=== PATIENT | female | born 1950 | race Asian ===

== ENCOUNTER 2024-10-21 14:41 | Emergency (ER) | payer MEDICARE, SELFPAY ==
--- NOTE | ~2024-10-21 | CT_ITS ---
EXAMINATION: CT HEAD WITHOUT CONTRAST CLINICAL INFORMATION: Headache status-post fall. COMPARISON: None available. TECHNIQUE: Contiguous axial imaging was performed from the skull base to vertex without intravenous administration of contrast. Multiplanar reformatted images are submitted. This CT examination was performed using dose optimization techniques as appropriate, variously including the following: *Automated exposure control *Adjustment of mA and/or kV according to patient size (this includes techniques or standardized protocols for targeted exams where dose is matched to indication/reason for exam; i.e. extremities or head) *Use of iterative reconstruction technique DLP: 1064 mGy-cm (head and cervical spine) FINDINGS: There is no acute intracranial hemorrhage or evidence of territorial infarction. No abnormal mass effect or midline shift is seen. Fajardo to white matter differentiation is well preserved. There is mild patchy low attenuation change in the periventricular and subcortical white matter spaces. The ventricles are normal in size. No extra-axial fluid collections are identified. The calvarium is intact, without fracture. There is a large posterior scalp hematoma. The middle ear cavity and mastoid air cells are clear. There is mild bilateral ethmoid and maxillary sinusitis. The frontal sinuses are aplastic. CT/CT cervical spine wo IV con IMPRESSION: 1. No acute intracranial pathology. 2. There is mild patchy low attenuation change in the periventricular and subcortical white matter spaces, commonly associated with chronic microangiopathy. 3. A moderately large posterior scalp hematoma is seen, without underlying fracture noted. 4. There is mild paranasal sinusitis. EXAMINATION: CT CERVICAL SPINE WITHOUT CONTRAST CLINICAL INFORMATION: Neck pain status-post fall. COMPARISON: None available. TECHNIQUE: Contiguous axial imaging was performed through the cervical spine without intravenous administration of contrast. Multiplanar reformatted images are submitted. This CT examination was performed using dose optimization techniques as appropriate, variously including the following: *Automated exposure control *Adjustment of mA and/or kV according to patient size (this includes techniques or standardized protocols for targeted exams where dose is matched to indication/reason for exam; i.e. extremities or head) *Use of iterative reconstruction technique DLP: As above FINDINGS: Vertebral body heights and alignment are normal. There is mild disc space narrowing at C5-6. The remaining disc spaces are well-maintained. No acute fracture or spondylolisthesis is seen. There is endplate arthropathy at C4-5 through C6-7. The posterior elements are intact. There is no prevertebral soft tissue swelling. The dens is intact. The bilateral lung apices are clear. IMPRESSION: 1. No acute fracture or spondylolisthesis is seen. 2. There is mild degenerative disc disease at C5-6. Fleischner guidelines were followed. Electronically signed by: Tito Baldwin MD 10/21/2024 04:01 PM FARZANA
[2024-10-21 14:51] VITALS: BP 156/87; BP 197/80; PULSE 70; PULSE 72; RESP 16; TEMP 37; O2SAT 96; BMI 27.4
--- NOTE | 2024-10-21 14:57 | ED_ITS ---
HPI - Head Injury General Chief complaint: Fall Stated complaint: SLIP/FALL ON ICE,UNK DOWNTIME,DIZZY,HEAD/NECK PAIN Time Seen by Provider: 10/21/24 14:55 Source: patient and EMS Limitations: language barrier (Primary language; Uruguayan - requesting to son as pipe stress engineer rather than translation service) History of Present Illness ED Provider: Rayne Terry NP HPI Narrative: Patient is a 74-year-old female with past medical history of hypertension who presents emergency department via EMS for evaluation. Patient was found at the end of her driveway in an icy area. Family that lives across the street was on scene for EMS facilitating translation. Patient endorsing posterior head and neck pain and dizziness. Son arrives to the emergency department at the time of my evaluation. Patient requesting to use sun as pipe stress engineer declining translation services. Patient's son reports that patient often reports feeling lightheaded. She was feeling otherwise well today. Reports that she was attempting to shovel the driveway today, she went to go to the mailbox and states that she felt lightheaded and ultimately fell. When asked the patient declines slipping on ice. Reports that she did not lose consciousness, states that she was able to call her family that lives across the street right currently she is complaining of pain to the back of her head. She denies any dizziness, lightheadedness, vision changes, neck pain, neck stiffness, numbness or tingling of the extremities, bladder bowel dysfunction Related Data Allergies Allergy/AdvReac Type Severity Reaction Status Date / Time No Known Allergies Allergy Verified 10/21/24 14:54 Review of Systems 2 Review of Systems: Yes all other systems are reviewed and are negative [facility] Past Medical History Attestation statement: The following information was validated with the patient. Source: old records reviewed Social History Social History Smoked in Last 30 Days: No Use of substances other than those prescribed or required for medical reasons: No Advance Directives: No Advance Directives Information Provided: Yes Do you have a plan to hurt others: No Plan Physical Exam 2 Vital Signs: Vital Signs: Last Vital Signs Temp 98.6 F 10/21/24 15:07 Pulse 86 10/21/24 17:53 Resp 16 10/21/24 17:49 BP 144/87 H 10/21/24 17:53 Pulse Ox 96 10/21/24 17:49 O2 Del Method Room Air 10/21/24 17:49 BMI result Body Mass Index 27.4 Appearance: Alert.?Oriented to person, place and time. No acute distress.?Normal affect. Head: Normocephalic Eyes: Pupils equal, round and reactive to light. EOMI. Conjunctiva and sclera normal? No Rosenthal sign noted. No raccoon eyes noted ENT: No septal hematoma, nares patent bilaterally. External auditory canal normal tympanic membrane pearly patterson and intact bilaterally. Dentition normal, no fractured teeth. No lesions or lacerations of oropharynx. Uvula midline. Moist mucous membranes. Neck: Normal inspection.? Neck supple.??No palpable tenderness, step-off, deformities. CVS: Heart sounds normal. Normal heart rate and rhythm.? Pulses normal.?? Respiratory: No respiratory distress.? Lung sounds clear to auscultation bilaterally?? Abdomen: Soft and non-tender. Normoactive bowel sounds. ?? Skin: Skin warm and dry.? Normal skin color.? Normal skin turgor.?? Extremities: No lower extremity edema.? Neuro: Moves all extremities spontaneously. Sensation intact bilaterally. CN II- XII intact. No focal neuro deficits. Course Reevaluation(s) Reevaluation #1: CT of the cervical spine with mild DJD no acute fracture subluxation. CT of the head/brain without acute intracranial pathology, chronic microangiopathy, posterior scalp hematoma without underlying fracture. Patient has noticed in COVID-19 positive today, which may be perhaps prior she was feeling more weak and lightheaded especially while outdoors today. Her high sensitive troponin is below detectable limits, EKG revealing normal sinus rhythm with ventricular rate of 66, normal CHRISTINA, QTC 467, T-wave inversion V1-V3, no ST elevation or depression given the lightheadedness associated with exertional activity will obtain delta troponin to exclude ACS. Orthostatic vital signs are negative. CBC is without leukocytosis anemia or thrombocytopenia. No electrolyte derangement. No PARTHA. Urinalysis with without evidence of infection. Ambulatory with a steady gait. Reevaluation #2: Delta troponin is negative, discussed findings with patient and son. Requesting discharge home which I feel is reasonable at this time. Advised close monitoring and assistance as she may have increasing fatigue/weakness with COVID-19. She is in no respiratory distress. LS CTA. No tachypnea hypoxia or tachycardia. Declines interest in [place] Time: 18:54 Medical Decision Making Medical Decision Making [facility] Narrative: Patient is a 74-year-old female presenting to the emergency department for evaluation after a fall with subsequent head strike no reported loss of consciousness, the setting of preceding lightheadedness as per HPI. Given the mechanism of injury and age I will obtain CT head and cervical spine to exclude ICH, SDH, skull fracture, cervical spine fracture subluxation. In consideration of the preceding lightheadedness, although son reports this is not uncommon for her, she has no focal neurological deficits on examination, no spontaneous or gaze evoked nystagmus, no ataxia, diplopia, no dysarthria, no dysphagia, no dysphonia, no dysmetria. Will obtain CBC to evaluate for leukocytosis/ anemia, CMP to evaluate for abnormal electrolytes /abnormal renal function/ abnormal hepatic function, EKG and troponin to evaluate for ischemia/ACS. Differential Diagnosis Differential Diagnoses: The differential diagnosis associated with the presentation includes (See narrative above) Admission/Observation Consideration of admission/observation: Escalation of care including admission/observation considered (See narrative above) Lab Data [facility] Lab Attestation statement: I reviewed the patient's lab results. 10/21/24 16:05 10/21/24 16:05 Labs: Lab Results 10/21/24 10/21/24 10/21/24 Range/Units 16:05 16:06 16:30 WBC 9.6 (4.8-10.8) X10*3/uL RBC 5.02 (4.20-5.50) X10*6/uL Hgb 13.0 (12.0-16.0) g/dl Hct 41.5 (37.0-47.0) % MCV 82.7 (80.0-98.0) fL MCH 25.9 L (27.0-33.0) pg MCHC 31.3 (31.0-35.0) g/dl RDW 12.7 (11.0-16.0) % Plt Count 235 (160-400) X10*3/uL MPV 10.2 (9.4-12.3) fL Immature Gran % (Auto) 0.4 (0.0-0.4) % Neut % (Auto) 81.2 H (45-73) % Lymph % (Auto) 13.3 L (20-40) % Pershing % (Auto) 4.5 (2-11) % Eos % (Auto) 0.2 (0-4) % Baso % (Auto) 0.4 (0-2) % Lymph # (Auto) 1.3 (1.2-4.9) X10*3/uL Pershing # (Auto) 0.4 (0.1-1.2) X10*3/uL Eos # (Auto) 0.0 (0.0-0.4) X10*3/uL Baso # (Auto) 0.0 (0.0-0.2) X10*3/uL Abs Immat Gran (auto) 0.04 H (0.00-0.03) X10*3/uL Absolute Neuts (auto) 7.8 (2.0-8.3) x10*3/uL Absolute Nucleated RBC 0.000 (0.0-0.012) X10*3/uL Nucleated RBC % (auto) 0.0 (0.0-0.2) /100WBC PT 12.5 H (10.9-12.4) SEC INR 1.1 (0.9-1.1) Sodium 138 (135-145) mmol/L Potassium 3.4 (3.3-5.1) mmol/L Chloride 100 (96-108) mmol/L Carbon Dioxide 29 (22-29) mmol/L Anion Gap 12 (12-20) BUN 16 (9-16) mg/dL Creatinine 0.72 (0.5-1.4) mg/dL Estim Creat Clear Calc 60.9 Estimated GFR > 60 Random Glucose 119 H (60-115) mg/dL Calcium 9.3 (8.4-10.2) mg/dL Magnesium 2.1 (1.6-2.6) mg/dL Total Bilirubin 0.6 (0.0-1.0) mg/dL AST 33 H (5-31) U/L ALT 32 H (0-31) U/L Alkaline Phosphatase 82 (39-117) U/L Troponin I High Sens < 2.7 (<3.5-17.0) ng/L Total Protein 8.2 H (6.5-8.0) g/dL Albumin 4.4 (3.5-5.0) g/dL Urine Color Yellow Urine Appearance Clear Urine pH 7.0 (5.0-9.0) Ur Specific Apison 1.010 (1.005-1.025) Urine Protein Negative (Neg-Trace) mg/dL Urine Glucose (UA) Negative (Negative) mg/dL Urine Ketones Negative (Negative) mg/dL Urine Blood Trace H (Negative) Urine Nitrite Negative (Negative) Ur Leukocyte Esterase Negative (Negative) Urine RBC 3-5 H (0-2) /HPF Urine WBC 0-5 (0-5) /HPF Ur Squamous Epith Cells 0-2 (0-2) /HPF Urine Bacteria None Seen (None Seen) Hyaline Casts 0-2 (0-2) /LPF Influenza Type A (PCR) NEGATIVE (Negative) Influenza Type B (PCR) NEGATIVE (Negative) RSV RNA Qual (PCR) NEGATIVE (Negative) SARS-CoV-2 RNA (RT-PCR) POSITIVE A (Negative) 10/21/24 Range/Units 18:05 WBC (4.8-10.8) X10*3/uL RBC (4.20-5.50) X10*6/uL Hgb (12.0-16.0) g/dl Hct (37.0-47.0) % MCV (80.0-98.0) fL MCH (27.0-33.0) pg MCHC (31.0-35.0) g/dl RDW (11.0-16.0) % Plt Count (160-400) X10*3/uL MPV (9.4-12.3) fL Immature Gran % (Auto) (0.0-0.4) % Neut % (Auto) (45-73) % Lymph % (Auto) (20-40) % Pershing % (Auto) (2-11) % Eos % (Auto) (0-4) % Baso % (Auto) (0-2) % Lymph # (Auto) (1.2-4.9) X10*3/uL Pershing # (Auto) (0.1-1.2) X10*3/uL Eos # (Auto) (0.0-0.4) X10*3/uL Baso # (Auto) (0.0-0.2) X10*3/uL Abs Immat Gran (auto) (0.00-0.03) X10*3/uL Absolute Neuts (auto) (2.0-8.3) x10*3/uL Absolute Nucleated RBC (0.0-0.012) X10*3/uL Nucleated RBC % (auto) (0.0-0.2) /100WBC PT (10.9-12.4) SEC INR (0.9-1.1) Sodium (135-145) mmol/L Potassium (3.3-5.1) mmol/L Chloride (96-108) mmol/L Carbon Dioxide (22-29) mmol/L Anion Gap (12-20) BUN (9-16) mg/dL Creatinine (0.5-1.4) mg/dL Estim Creat Clear Calc Estimated GFR Random Glucose (60-115) mg/dL Calcium (8.4-10.2) mg/dL Magnesium (1.6-2.6) mg/dL Total Bilirubin (0.0-1.0) mg/dL AST (5-31) U/L ALT (0-31) U/L Alkaline Phosphatase (39-117) U/L Troponin I High Sens 3.4 (<3.5-17.0) ng/L Total Protein (6.5-8.0) g/dL Albumin (3.5-5.0) g/dL Urine Color Urine Appearance Urine pH (5.0-9.0) Ur Specific Apison (1.005-1.025) Urine Protein (Neg-Trace) mg/dL Urine Glucose (UA) (Negative) mg/dL Urine Ketones (Negative) mg/dL Urine Blood (Negative) Urine Nitrite (Negative) Ur Leukocyte Esterase (Negative) Urine RBC (0-2) /HPF Urine WBC (0-5) /HPF Ur Squamous Epith Cells (0-2) /HPF Urine Bacteria (None Seen) Hyaline Casts (0-2) /LPF Influenza Type A (PCR) (Negative) Influenza Type B (PCR) (Negative) RSV RNA Qual (PCR) (Negative) SARS-CoV-2 RNA (RT-PCR) (Negative) Radiology Impression Discussion of test interpretation with radiology: I have reviewed the radiologist's reading. Radiologist Impression: CT/CT head/brain wo IV con IMPRESSION: 1. No acute intracranial pathology. 2. There is mild patchy low attenuation change in the periventricular and subcortical white matter spaces, commonly associated with chronic microangiopathy. 3. A moderately large posterior scalp hematoma is seen, without underlying fracture noted. 4. There is mild paranasal sinusitis. EXAMINATION: CT CERVICAL SPINE WITHOUT CONTRAST IMPRESSION: 1. No acute fracture or spondylolisthesis is seen. 2. There is mild degenerative disc disease at C5-6. Independent Historian Clinical information obtained from an independent historian. History obtained from or confirmed by: EMS External Record Review External record reviewed: Outpatient record Chronic Conditions Patient?s care impacted by: Other (See narrative above) Discharge Plan Discharge Clinical Impression: Acute head injury, Hematoma of occipital region of scalp, COVID-19 Patient Disposition: Home, Self-Care Instructions: Head Injury (ED), Scalp Contusion in Adults (ED), COVID-19 (Coronavirus Disease 2019) (ED) Additional Instructions: Imaging today did not show acute internal injury of the head/brain from the fall today. There is a hematoma to the scalp in the back which is a collection of fluid just beneath the skin. This will eventually resolve on its own. Workup today was otherwise unremarkable except for positive for COVID-19 testing. This may have resulted in increasing weakness today, and feeling unsteady/lightheaded. Please follow-up with primary care doctor. Return to emergency department any new or worsening symptoms or concerns. Print Language: U[place]ayan - Simplified
[2024-10-21 15:07] VITALS: BP 197/80; PULSE 70; RESP 16; TEMP 37; O2SAT 96
--- NOTE | 2024-10-21 15:11 | PC.NURSE ---
Pt comes to ED today via EMS s/p fall. Per EMS, Pt found at the end of her driveway c/o posterior head pain after falling. Soft collar (sheet) placed on Pt. Pt is A&Ox3 Elevated BP--Pt with (+) hx HTN; Pt reports she took her medications at 9am today. Skin is warm and dry Breaths and speech are even and unlabored. Facial symmetry noted. (+) PERRLA Pt is primarily Greenlandic/mandarin speaking but can do simple bulgarian. Son present at bedside for help with translation. 20g to LAC placed by EMS.
--- NOTE | 2024-10-21 15:38 | ECG_ITS ---
Test Reason : FALL Blood Pressure : / mmHG Vent. Rate : 066 BPM Atrial Rate : 066 BPM P-R Int : 178 ms QRS Dur : 082 ms QT Int : 446 ms P-R-T Axes : 050 020 066 degrees QTc Int : 467 ms Normal sinus rhythm Possible Inferior infarct , age undetermined Abnormal ECG No previous ECGs available Referred By: Rayne Terry Electronically Signed By:Lewis Colunga
[2024-10-21 16:11] LABS: MANUAL DIFF FLAG NO
[2024-10-21 16:13] LABS: Basophils Percent Auto 0.4 % (0-2); Eosinophils Percent Auto 0.2 % (0-4); Hematocrit 41.5 % (37.0-47.0); Imm Gran Abs Auto 0.04 X10*3/uL (0.00-0.03); Imm Gran Pct Auto 0.4 % (0.0-0.4); Lymphocytes Absolute Auto 1.3 X10*3/uL (1.2-4.9); Lymphocytes Percent Auto 13.3 % (20-40); Mean Corpuscular HGB Conc 31.3 g/dl (31.0-35.0); Mean Corpuscular Hemoglobin 25.9 pg (27.0-33.0); Mean Corpuscular Volume 82.7 fL (80.0-98.0); Mean Platelet Volume 10.2 fL (9.4-12.3); Monocytes Absolute Auto 0.4 X10*3/uL (0.1-1.2); Monocytes Percent Auto 4.5 % (2-11); Neutrophils Absolute Auto 7.8 x10*3/uL (2.0-8.3); Neutrophils Percent Auto 81.2 % (45-73); Platelet Count 235 X10*3/uL (160-400); Red Blood Count 5.02 X10*6/uL (4.20-5.50); Red Cell Distribution Width 12.7 % (11.0-16.0); White Blood Count 9.6 X10*3/uL (4.8-10.8)
[2024-10-21 16:27] LABS: Alanine Aminotransferase 32 U/L (0-31); Albumin Level 4.4 g/dL (3.5-5.0); Alkaline Phosphatase 82 U/L (39-117); Anion Gap 12 (12-20); Aspartate Amino Transferase 33 U/L (5-31); Bilirubin Total 0.6 mg/dL (0.0-1.0); Blood Urea Nitrogen 16 mg/dL (9-16); Calcium 9.3 mg/dL (8.4-10.2); Carbon Dioxide 29 mmol/L (22-29); Chloride 100 mmol/L (96-108); Creatinine Clr Calc Pharmacy 60.9; Estimated Glomerular Filt Rate > 60; Glucose Random 119 mg/dL (60-115); Magnesium 2.1 mg/dL (1.6-2.6); Potassium 3.4 mmol/L (3.3-5.1); Sodium 138 mmol/L (135-145); Total Protein 8.2 g/dL (6.5-8.0)
[2024-10-21 16:28] LABS: INTERNATIONAL NORM RATIO 1.1 (0.9-1.1); Prothrombin Time 12.5 SEC (10.9-12.4)
[2024-10-21 16:37] LABS: Troponin-I High Sensitivity < 2.7 ng/L (<3.5-17.0)
[2024-10-21 16:51] LABS: Appearance Urine Clear; Color Urine Yellow; Glucose Urine UA Negative (Negative); Leukocyte Esterase Urine Negative (Negative); Nitrite Urine Negative (Negative); UMIC TRIGGER UACC YES; Urine Blood Trace (Negative); Urine Ketones Negative (Negative); Urine Protein Negative (Neg-Trace)
[2024-10-21 17:00] LABS: Influenza A PCR NEGATIVE (Negative); Influenza B PCR NEGATIVE (Negative); Resp Syncy Virus RNA Qual PCR NEGATIVE (Negative); SARS COV2 PCR INHOUSE POSITIVE (Negative)
--- NOTE | 2024-10-21 17:45 | PC.NURSE ---
Soft collar removed per ED provider. Pt (+) COVID Orthostatics to be completed.
[2024-10-21 17:49] VITALS: BP 151/78; PULSE 71; RESP 16; O2SAT 96
[2024-10-21 17:50] VITALS: BP 144/87; BP 151/78; PULSE 71; PULSE 79
[2024-10-21 17:50] LABS: Bacteria Urine None Seen (None Seen); Hyaline Casts Urine 0-2 /LPF (0-2); Squamous Epithelial Cell Urine 0-2 /HPF (0-2); WBC Urine 0-5 /HPF (0-5)
[2024-10-21 17:53] VITALS: BP 144/87; PULSE 86
[2024-10-21 18:28] LABS: Troponin-I High Sensitivity 3.4 ng/L (<3.5-17.0)
[2024-10-21 19:48] VITALS: BP 136/94; PULSE 86; RESP 18; TEMP 36.6; O2SAT 97
== END 2024-10-21 19:49 | disposition home or self-care (01) ==
PROVIDERS: Nurse Practitioner Family; Emergency Provider Student in an Organized Health Care Education/Training Program; PCP Internal Medicine
DX: U07.1 COVID-19 (principal); S09.8XXA Other specified injuries of head, initial encounter; S00.03XA Contusion of scalp, initial encounter; W18.39XA Other fall on same level, initial encounter; R42 Dizziness and giddiness; M54.2 Cervicalgia; Y93.01 Activity, walking, marching and hiking; Y92.008 Other place in unspecified non-institutional (private) residence as the place of occurrence of the external cause; Y99.9 Unspecified external cause status
CPT/HCPCS: 0241U; 36415; 70450; 72125; 80053; 81001; 81003; 83735; 83880; 84484; 85025; 85610; 93005; 99284; 99285

== ENCOUNTER → 2024-10-21 15:38 | Outpatient (BNV) | payer MEDICARE, SELFPAY | PROVIDERS: Emergency Provider Student in an Organized Health Care Education/Training Program; PCP Internal Medicine; Visit Provider Internal Medicine Cardiovascular Disease | DX: R94.31 Abnormal electrocardiogram [ECG] [EKG] (principal) | CPT/HCPCS: 93010 ==